=== PATIENT | male | born 1965 | race Two or more races ===

== ENCOUNTER 2020-05-28 14:12 | Outpatient (CLI) | payer OTHER | END 2020-05-28 14:30 | disposition home or self-care (01) | LOC: OFIC 805 14:12 | PROVIDERS: ATTEND Otolaryngology | DX: H90.41 Sensorineural hearing loss, unilateral, right ear, with unrestricted hearing on the contralateral side (principal); H93.8X1 Other specified disorders of right ear ==

== ENCOUNTER 2020-06-13 15:25 | Outpatient (CLI) | payer OTHER | END 2020-06-13 16:00 | disposition home or self-care (01) | LOC: OFIC 805 15:25 | PROVIDERS: ATTEND Otolaryngology | DX: H93.8X1 Other specified disorders of right ear (principal); H90.41 Sensorineural hearing loss, unilateral, right ear, with unrestricted hearing on the contralateral side ==

== ENCOUNTER 2021-03-23 19:06 | Emergency (ER) | payer OTHER ==
[~2021-03-23] VITALS: Ht 170.2 cm; Wt 83.5 kg
[2021-03-23] MEDS ORDERED: COZAAR100 MG (19:22)
[2021-03-23] MEDS ORDERED: TOPROL XL50 M1 (19:22)
[2021-03-23] MEDS ORDERED: PERCOCET 5-3251 EACH (19:23)
== END 2021-03-23 20:07 | disposition home or self-care (01) ==
LOC: ER 19:06
DX: S01.81XA Laceration without foreign body of other part of head, initial encounter (principal); W22.8XXA Striking against or struck by other objects, initial encounter; Y93.89 Activity, other specified; Y92.89 Other specified places as the place of occurrence of the external cause

== ENCOUNTER 2021-08-28 07:09 | Outpatient (CLI) | payer OTHER ==
[~2021-08-28 07:09] MED LIST: COZAAR100 MG; PERCOCET 5-3251 EACH; TOPROL XL50 M1
== END 2021-08-28 07:15 | disposition home or self-care (01) ==
LOC: NUCLEAR 07:09
PROVIDERS: ATTEND Surgery
DX: K81.1 Chronic cholecystitis (principal)
CPT/HCPCS: 78226; A9537; J2805

== ENCOUNTER → 2021-12-14 | Emergency (ER) | payer OTHER ==
[~2021-12-14] VITALS: Ht 170.2 cm; Wt 81.6 kg
[~2021-12-14] MED LIST changes: +NIFEDIPINE20 MG PO; +TRULICITY0.75 MG/0. SUBCUTANEO
== END | disposition left against medical advice (07) ==
LOC: ER 15:25
DX: Z53.20 Procedure and treatment not carried out because of patient's decision for unspecified reasons (principal)